=== PATIENT | male | born 1985 | race Caucasian/White ===

== ENCOUNTER 2017-04-19 20:20 | Emergency (ER) | payer BC ==
[2017-04-19] MEDS ORDERED: Ketorolac 30 MG/ML SDV IVPUSH ONE (20:55)
[2017-04-19] MEDS ORDERED: Sodium Chloride 0.9% 10 ML Syringe FLUSH PRN (20:55)
[2017-04-19] MEDS ORDERED: Sodium Chloride 0.9% 1,000 ML IV ONE (20:55)
[2017-04-19] MEDS ORDERED: Sodium Chloride 0.9% 2.5 ML Syringe FLUSH PRN (20:55)
--- NOTE | 2017-04-19 20:58 | EDM.PDOC ---
ED HPI GENERAL MEDICAL PROBLEM - General Chief Complaint: Flank Pain Stated Complaint: KIDNEY STONES Time Seen by Provider: 04/19/17 20:50 - History of Present Illness INITIAL COMMENTS - FREE TEXT/NARRATIVE: HISTORY AND PHYSICAL: History of present illness: The patient is a 32-year-old male with a history of 5 prior episodes of kidney stones bilaterally and presents with right flank pain/right lower back pain that started yesterday and a gradual onset. He says it's been uncomfortable and there is no change with movement and he had no recent trauma or increased activity. He did have nausea today for which she used an old Zofran and he did have increased pain tonight for which she took a next by her Percocet. He says he got these medications from an ER back home with his last kidney stone attack and both prescriptions are . He's had no burning or pain with urination no hematuria no testicular pain or swelling. He says that after the Percocet the pain is bearable but he is concerned that it will come back and it is another kidney stone. The patient admits he has been drinking some power drinks and has not hydrating as much as usual. He's had no diarrhea and no change in his bowel movements. The pain in his flank and back does not radiate to his legs and he has had no bowel or bladder disturbances. Is no weakness in his legs. Review of systems: As per history of present illness and below otherwise all systems reviewed and negative. Past medical history: As per history of present illness and as reviewed below otherwise noncontributory. Surgical history: As per history of present illness and as reviewed below otherwise noncontributory. Social history: No reported history of drug or alcohol abuse. Family history: As per history of present illness and as reviewed below otherwise noncontributory. Physical exam: Gen.: Well-developed well-nourished man who is nontoxic and moves easily in the ED. Vital signs are noted by me HEENT: Atraumatic, normocephalic, negative for conjunctival pallor or scleral icterus, mucous membranes moist, throat clear, neck supple, nontender, trachea midline. Lungs: Clear to auscultation, breath sounds equal bilaterally, chest nontender. Heart: S1S2, regular rate and rhythm no overt murmurs Abdomen: Soft, nondistended, nontender. NABS Negative for costovertebral tenderness. Pelvis: Stable nontender. Genitourinary: Deferred. Rectal: Deferred. Extremities: Atraumatic, negative for cords or calf pain. Neurovascular unremarkable. Neuro: Awake, alert, oriented. Cranial nerves II through XII unremarkable. Cerebellum unremarkable. Motor and sensory unremarkable throughout. Exam nonfocal. Back: There are no midline step-offs in his defects of the thoracic or lumbar spine and no discrete CVA tenderness on the right Diagnostics: UA urine culture CBC CMP CT scan of the abdomen and pelvis Therapeutics: IV fluids Toradol--- patient told nursing that he felt better and declined these , Flomax Patient took Percocet and Zofran prior to coming here I discussed this case with Dr. Canseco her urologist and he is aware of the WBC count and the creatinine and recommends Cipro Flomax and pain meds Zofran and urine strainers for home and he was see the patient tomorrow in his clinic. I discussed all testing results with the patient and will give him prescriptions for all of these meds. Impression: Right flank pain, proximal right ureteral stone with leukocytosis. Definitive disposition and diagnosis as appropriate pending reevaluation and review of above. right lower back Pain Score (Numeric/FACES): 7 ED ROS GENERAL - Review of Systems Review Of Systems: ROS reveals no pertinent complaints other than HPI. ED EXAM, GENERAL - Physical Exam Exam: See Below (See dictation) Course - Vital Signs Last Recorded V/S: Last Vital Signs Temp 36.4 C 04/19/17 20:44 Pulse 64 04/19/17 20:44 Resp 17 04/19/17 20:44 BP 138/81 04/19/17 20:44 Pulse Ox 96 04/19/17 20:44 - Orders/Labs/Meds Orders: Active Orders 24 hr Category Date Time Status Abdomen Pelvis wo Cont [CT] Stat Exams 04/19/17 20:55 Taken CULTURE URINE [RM] Stat Lab 04/19/17 20:55 Received Sodium Chloride 0.9% [Normal Saline] 1,000 ml Med 04/19/17 20:55 Active IV STAT Sodium Chloride 0.9% [Saline Flush] Med 04/19/17 20:55 Active 10 ml FLUSH ASDIRECTED PRN Sodium Chloride 0.9% [Saline Flush] Med 04/19/17 20:55 Active 2.5 ml FLUSH ASDIRECTED PRN Saline Lock Insert [OM.PC] Stat Oth 04/19/17 20:54 Ordered Medication Orders Sodium Chloride (Normal Saline) 1,000 mls @ 999 mls/hr IV STAT ONE Stop: 04/19/17 21:55 Sodium Chloride (Saline Flush) 10 ml FLUSH ASDIRECTED PRN PRN Reason: Keep Vein Open Sodium Chloride (Saline Flush) 2.5 ml FLUSH ASDIRECTED PRN PRN Reason: Keep Vein Open Labs: Laboratory Tests 04/19/17 04/19/17 04/19/17 Range/Units 20:55 21:02 21:02 WBC 15.75 H (4.0-11.0) K/uL RBC 5.13 (4.50-5.90) M/uL Hgb 15.5 (13.0-17.0) g/dL Hct 42.9 (38.0-50.0) % MCV 83.6 (80.0-98.0) fL MCH 30.2 (27.0-32.0) pg MCHC 36.1 (31.0-37.0) g/dL RDW Std Deviation 39.7 (28.0-62.0) fl RDW Coeff of Tao 13 (11.0-15.0) % Plt Count 209 (150-400) K/uL MPV 9.60 (7.40-12.00) fL Neut % (Auto) 82.9 H (48.0-80.0) % Lymph % (Auto) 10.7 L (16.0-40.0) % Hughes % (Auto) 6.0 (0.0-15.0) % Eos % (Auto) 0.3 (0.0-7.0) % Baso % (Auto) 0.1 (0.0-1.5) % Neut # (Auto) 13.1 H (1.4-5.7) K/uL Lymph # (Auto) 1.7 (0.6-2.4) K/uL Hughes # (Auto) 1.0 H (0.0-0.8) K/uL Eos # (Auto) 0.0 (0.0-0.7) K/uL Baso # (Auto) 0.0 (0.0-0.1) K/uL Nucleated RBC % 0.0 /100WBC Nucleated RBCs # 0 K/uL Sodium 136 (136-146) mmol/L Potassium 4.0 (3.5-5.1) mmol/L Chloride 102 (98-110) mmol/L Carbon Dioxide 24 (21-31) mmol/L BUN 20 (6.0-23.0) mg/dL Creatinine 1.6 H (0.6-1.5) mg/dL Est Cr Clr Drug Dosing 73.42 mL/min Estimated GFR (MDRD) 50.7 ml/min Glucose 117 H (60-110) mg/dL Calcium 9.8 (8.8-10.8) mg/dL Total Bilirubin 0.7 (0.1-1.5) mg/dL AST 33 (5-40) IU/L ALT 56 H (8-54) IU/L Alkaline Phosphatase 85 (40-150) Total Protein 8.0 (6.0-8.0) g/dL Albumin 4.6 (3.5-5.0) g/dL Globulin 3.4 (2.0-3.5) g/dL Albumin/Globulin Ratio 1.4 (1.3-2.8) Urine Color YELLOW Urine Appearance CLEAR Urine pH 6.0 (5.0-8.0) Ur Specific Waite >= 1.030 (1.001-1.035) Urine Protein NEGATIVE (NEGATIVE) mg/dL Urine Glucose (UA) NEGATIVE (NEGATIVE) mg/dL Urine Ketones NEGATIVE (NEGATIVE) mg/dL Urine Occult Blood LARGE H (NEGATIVE) Urine Nitrite NEGATIVE (NEGATIVE) Urine Bilirubin NEGATIVE (NEGATIVE) Urine Urobilinogen 0.2 (<2.0) EU/dL Ur Leukocyte Esterase NEGATIVE (NEGATIVE) Urine RBC 5-10 (0-2/HPF) Urine WBC 0-1 (0-5/HPF) Ur Epithelial Cells RARE (NONE-FEW) Urine Bacteria RARE (NEGATIVE) Meds: Medications Generic Name Dose Route Start Last Admin Trade Name Freq PRN Reason Stop Dose Admin Sodium Chloride 1,000 mls @ 999 mls/hr 04/19/17 20:55 Normal Saline IV 04/19/17 21:55 STAT ONE Sodium Chloride 10 ml 04/19/17 20:55 Saline Flush FLUSH ASDIRECTED PRN Keep Vein Open Sodium Chloride 2.5 ml 04/19/17 20:55 Saline Flush FLUSH ASDIRECTED PRN Keep Vein Open Discontinued Medications Generic Name Dose Route Start Last Admin Trade Name Trena PRN Reason Stop Dose Admin Ketorolac Tromethamine 30 mg 04/19/17 20:55 Toradol IVPUSH 04/19/17 20:56 ONETIME ONE Departure - Departure Time of Disposition: 21:54 Disposition: Home, Self-Care 01 Condition: Good Clinical Impression: Ureterolithiasis - Discharge Information Referrals: PCP,None [Primary Care Provider] - Forms: ED Department Discharge Additional Instructions: The following information is given to patients seen in the emergency department who are being discharged to home. This information is to outline your options for follow-up care. We provide all patients seen in our emergency department with a follow-up referral. The need for follow-up, as well as the timing and circumstances, are variable depending upon the specifics of your emergency department visit. If you don't have a primary care physician on staff, we will provide you with a referral. We always advise you to contact your personal physician following an emergency department visit to inform them of the circumstance of the visit and for follow-up with them and/or the need for any referrals to a consulting specialist. The emergency department will also refer you to a specialist when appropriate. This referral assures that you have the opportunity for followup care with a specialist. All of these measure are taken in an effort to provide you with optimal care, which includes your followup. Under all circumstances we always encourage you to contact your private physician who remains a resource for coordinating your care. When calling for followup care, please make the office aware that this follow-up is from your recent emergency room visit. If for any reason you are refused follow-up, please contact the [facility] emergency department at and ask to speak to the emergency department charge nurse. [facility] [address] [place] [id number] Please call the clinic tomorrow morning to be seen by Dr. Canseco in the next 1- 2 days. Strain all urine looking for the stone using the urine strainers we have given you. Use all medications as prescribed and be sure to take the Cipro until it is finished. Push hydration and return to ER as needed as discussed. You have been given Zofran and Flomax and ciprofloxacin [place] via [facility] - My Orders Last 24 Hours: My Active Orders 04/19/17 20:54 Saline Lock Insert [OM.PC] Stat 04/19/17 20:55 Abdomen Pelvis wo Cont [CT] Stat CULTURE URINE [RM] Stat Sodium Chloride 0.9% [Normal Saline] 1,000 ml IV STAT Sodium Chloride 0.9% [Saline Flush] 10 ml FLUSH ASDIRECTED PRN Sodium Chloride 0.9% [Saline Flush] 2.5 ml FLUSH ASDIRECTED PRN - Assessment/Plan Last 24 Hours: My Active Orders 04/19/17 20:54 Saline Lock Insert [OM.PC] Stat 04/19/17 20:55 Abdomen Pelvis wo Cont [CT] Stat CULTURE URINE [RM] Stat Sodium Chloride 0.9% [Normal Saline] 1,000 ml IV STAT Sodium Chloride 0.9% [Saline Flush] 10 ml FLUSH ASDIRECTED PRN Sodium Chloride 0.9% [Saline Flush] 2.5 ml FLUSH ASDIRECTED PRN
[2017-04-19] MEDS ORDERED: Tamsulosin 0.4 MG Cap.ER PO ONE (21:58)
--- NOTE | 2017-04-20 09:34 | CT ---
EXAM DATE: 04/19/17 PATIENT'S AGE: 32 Patient: AWAIS MALDONADO Facility: [place], [place] Site . Site : [id number] Study: CT Abdomen/Pelvis W/O [id number]/12/2018 9:25:19 PM Ordering Physician: Donovan Connors Final Report: INDICATION: Right flank pain with history of kidney stones TECHNIQUE: CT abdomen and pelvis without contrast. COMPARISON: None FINDINGS: Lower chest: Unremarkable. Liver: Unremarkable. Spleen: Unremarkable. Pancreas: Unremarkable. Gallbladder and bile ducts: Unremarkable. Kidneys: 3 millimeter obstructing calculus proximal right ureter with mild to moderate hydronephrosis. 1-2 millimeter nonobstructing calculi in mid zone inferior pole right kidney. Adrenal glands: Unremarkable. GI tract: Unremarkable. Appendix is normal. Vascular structures: Unremarkable. Lymph nodes: Unremarkable. Miscellaneous: Unremarkable. No free air or significant free fluid. Pelvic Organs: Unremarkable. Bones: Unremarkable for age. IMPRESSION: 3 millimeter calculus proximal right ureter with mild to moderate right hydronephrosis. 1-2 millimeter nonobstructing calculi mid-zone inferior pole right kidney. Dictated by Elian Scott MD @ 04/19/2017 9:49:25 PM Dictated by: Elian Scott MD @ 04/19/2017 21:49:36 (Electronic Signature) Report Signed by Proxy. [facility]
== END 2017-04-19 22:40 | disposition home or self-care (01) ==
LOC: MW.ED 20:20
DX: N13.2 Hydronephrosis with renal and ureteral calculous obstruction (principal); D72.829 Elevated white blood cell count, unspecified
CPT/HCPCS: 36415; 74176; 80053; 81001; 85025; 87086; 99284; A9270; 99283